=== PATIENT | female | born 1930 | race Caucasian/White ===

== ENCOUNTER 2017-12-19 15:17 | Inpatient (IN) | payer OTHER ==
[~2017-12-19] VITALS: Ht 154.9 cm; Wt 62.1 kg
[~2017-12-19 15:17] MED LIST: APAP650 PO; ASPERCREME1 EACH; ASPIRIN81 M2 PO; ATENOLOL 50MG T50 M1 PO; BENTYL 20 MG TA20 M1 PO; CIPRO500 MG PO; COLACE100 MG PO; COZAAR 50 MG TA50 M2 PO; FLAGYL500 MG PO; LEVAQUIN 750 M750 MG PO; LIDODERM 5%1 PATC1 TRANSDERM; LIPITOR 20 MG T20 M1 PO; MAPAP500 M1 PO; MIRALAX17 GM PO; MOBIC7.5 MG PO; NORVASC5 MG PO; PANTOPRAZOLE SO40 M1 PO; PROTONIX40 M1 PO
[2017-12-19 15:18] VITALS: BP 175/76
[2017-12-19] MEDS ORDERED: ACIDOPHILUS-PE1 EAC3 PO (15:32)
[2017-12-19] MEDS ORDERED: ACETAMINOPHEN500 M1 PO (15:33)
[2017-12-19] MEDS ORDERED: AZITHROMYCIN 2250 MG PO (15:33)
[2017-12-19] MEDS ORDERED: XOPENEX HFA15 GM INH (15:38)
[2017-12-19] MEDS ORDERED: TOPROL XL25 MG PO (15:38)
[2017-12-19 15:53] LABS: HEMATOCRIT 38.9 % (37.0-47.0); HEMOGLOBIN 12.7 gm/dL (12.0-15.0); MCH 29.5 pg (26.0-34.0); MCHC 32.8 g/dL (28.0-37.0); MCV 90.1 fL (80.0-100.0); MPV 7.4 fl. (7.2-11.1); NUCLEATED RBCS 0 /100WBC; PLATELET COUNT* 310 thou/uL (150-400); RBC 4.32 mil/uL (4.20-5.00); RDW-CV 14.5 % (10.5-14.5); WBC 16.7 thou/uL (4.0-11.0)
[2017-12-19 16:01] LABS: CALCIUM 9.1 mg/dL (8.5-10.1); CREATININE 1.6 mg/dL (0.6-1.3); POTASSIUM 3.3 mmol/L (3.5-5.1)
[2017-12-19 16:02] LABS: APTT 25.6 Seconds (25.0-31.3); INR 1.1; PROTIME 10.5 Seconds (9.20-11.50)
[2017-12-19 16:12] LABS: ALBUMIN 2.8 g/dL (3.4-5.0); TOTAL BILIRUBIN 0.5 mg/dL (<0.1-1.0); TOTAL PROTEIN 7.9 g/dL (6.4-8.2); TROPONIN-I LEVEL 0.08 ng/mL (<0.06)
[2017-12-19 16:22] LABS: ABSOLUTE LYMPHOCYTES 0.8 thou/uL (0.8-5.3); ABSOLUTE MONOCYTES 2.8 thou/uL (0.0-1.2)
[2017-12-19 16:23] LABS: PLATELET ESTIMATE ADEQUATE
[2017-12-19 17:50] LABS: URINE BILIRUBIN NEGATIVE (Negative); URINE BLOOD 2+ (Negative); URINE COLOR YELLOW; URINE GLUCOSE-RANDOM NEGATIVE (Negative); URINE KETONES TRACE (Negative); URINE NITRITE-REFLEX NEGATIVE (Negative); URINE PROTEIN 2+ (Negative); URINE UROBILINOGEN 0.2 E.U./dl (0.2-1.0)
[2017-12-19 17:52] LABS: URINE LEUKOCYTES-REFLEX 2+ (Negative)
[2017-12-19 17:53] LABS: URINE CLARITY HAZY
[2017-12-19 18:01] LABS: BACTERIA-REFLEX 1-9 Few /HPF (None Seen); CASTS None Seen /LPF (None Seen); MUCUS 4-6 Moderate strn/LPF (None Seen); SQUAMOUS 4-10 Moderate /LPF (0-3); URINE WBC-REFLEX 6-15 Few /HPF (0-5); WBC CLUMPS Few (None Seen)
[2017-12-19 18:02] LABS: AMORPHOUS URATES Moderate /LPF (None Seen)
[2017-12-19 18:08] VITALS: BP 155/65
--- NOTE | 2017-12-19 19:25 | NUR ---
PT ARRIVED TO THE FLOOR AT 1824, PT AND DAUGHTER ORIENTED TO THE I=UNIT AND SERVICES. PT THEBN TAKEN TO CT FOR STAT ORDERS AND RETURNED AT 1854. CARE HANDED OVER TO SEO PROFESSIONAL NURSE AT THAT POINT.
[2017-12-20] VITALS (7 sets, daily range): BP systolic 136–164; BP diastolic 59–69
[2017-12-20 05:03] LABS: HEMATOCRIT 35.2 % (37.0-47.0); HEMOGLOBIN 11.6 gm/dL (12.0-15.0); MCH 29.7 pg (26.0-34.0); MCHC 32.8 g/dL (28.0-37.0); MCV 90.5 fL (80.0-100.0); MPV 7.5 fl. (7.2-11.1); RBC 3.9 mil/uL (4.20-5.00); RDW-CV 14.6 % (10.5-14.5); WBC 14.4 thou/uL (4.0-11.0)
[2017-12-20 05:26] LABS: CREATININE 1.5 mg/dL (0.6-1.3); POTASSIUM 4.2 mmol/L (3.5-5.1)
--- NOTE | 2017-12-20 07:30 | NUR ---
ASSUMED CARE OF PT ASSESSED AND DOCUMENTED. PT ON CARDIAC MONITER TRACING SR 1ST DEGREE BBB HR 99. VSS WNL. PT IS AFEBRILE. SHE IS ALERT TO SELF. PT IS ON ROOM AIR. PT IS A FALL RISK PER FACILITY PROTOCOL. BED IS IN LOW POSITION CALL LIGHT IS IN REACH. PT HAS A ROBERSON CATH WITH CLEAR YELLOW URINE. SHE DOES WEAR HER SCD'S. WM.
--- NOTE | 2017-12-20 07:47 | NUR ---
ASSUMED CARE OF PT AT 1930, NURSING ASSESSMENT COMPLETED AT START OF SHIFT, PT VOICED NO CONCERNS, PT ORIENTED TO SELF AND PLACE ONLY. DAUGHTER IN ROOM AT START OF SHIFT. PT WEARING TELE MONITOR TRACING SINUS RHYTHM/SINUS TACHYCARDIA IN THE LOW 100'S. BED ALARM ON, FALL PRECAUTIONS IN PLACE, PT WEARING SCD'S. AT 0638, MESSAGE SENT TO DR. KRUSE TO NOTIFY OF PT'S POSITIVE BLOOD CULTURES. NEW ORDERS FOR VANCOMYCIN NOTED ON EMAR AT 0700. Q2H TURNS COMPLETED THIS SHIFT, PT SLOWLY PROGRESSING TOWARDS GOALS.
--- NOTE | 2017-12-20 12:01 | NUR ---
CM ASSESSMENT: Spoke with Pt's dtr, via phone. Pt resides at [facility] on the memory care unit. Dtr stated that up until Sunday, Pt was able to ambulate with her RW. Pt had an unwitnessed fall on Sunday. Dtr stated that the Pt "lives from one UTI to the next," and admits that Pt has a hard time bouncing back after each UTI. PT/OT/ST calderon ordered. Hx of CHCS. Facility assists with most ADLs. Dtr unsure if Pt will need skilled v. HH at tn. Following for disposition.
[2017-12-20] MEDS ORDERED: ASPERCREME1 EACH TOP (14:15)
[2017-12-20] MEDS ORDERED: ACETAMINOPHEN500 M1 PO (14:16)
[2017-12-20] MEDS ORDERED: MIRALAX17 GM PO (14:17)
[2017-12-20] MEDS ORDERED: XOPENEX HFA15 GM INH (14:18)
[2017-12-20] MEDS ORDERED: BIOFREEZE118 ML TOP (14:19)
--- NOTE | 2017-12-20 15:35 | EKG ---
[place] [address] ELECTROCARDIOGRAM REPORT Name: ANAM OJEDA Room: [address] ADM IN M.R.#: [id number] Admission: 12/19/17 Attend Phys: Rajeev Salcedo MD Discharge: Date of : [birth year] Report #: [id number] THIS REPORT FOR: //name// [facility] ED Test Date: 2017-12-19 Test Time: 15:24:36 Pat Name: ANAM OJEDA Department: Room: [facility] Gender: F Human Resources Leader: : 1930 Requested By: Bj Mace Order Number: [id number] MD: Troy Kong Measurements Intervals [place] Rate: 115 P: 31 GA: 326 QRS: -3 QRSD: 103 T: 203 QT: 338 QTc: 468 Interpretive Statements Sinus tachycardia Multiple ventricular premature complexes Prolonged GA interval Inferior infarct, old Compared to ECG 03/28/2017 11:34:00 Ventricular premature complex(es) now present Myocardial infarct finding now present Sinus rhythm no longer present Intraventricular conduction delay no longer present Electronically Signed On 12-20-2017 15:35:39 [employer] LAY UP WORKER by Troy Kong [email or web address] <ELECTRONICALLY SIGNED> By: Troy Kong MD, FACC 12/20/17 1535 1524 1524 Troy Kong MD, FAC /EPI
--- NOTE | 2017-12-20 17:35 | NUR ---
PT HAS SLEPT ON AND OFF THIS SHIFT. SHE HAS HAD NAUSEA X1. MEDICATION GIVEN AND WAS EFFECTIVE. PT C/O PAIN X2. 650 MG OF TYLENOL GIVEN AND WAS EFFECTIVE. PT HAS A TEMP AT 10:45 OF 99.5. HAS BEEN AFEBRILE SINCE. NEW IV PLACED 20G R WRIST. PT HAS HAD NO S OR SX OF ADVERSE REACTION TO ABT. HAVE ENCOURAGED FLUIDS AND NUTRITION. PT SPITS OUT. TRIED PT WITH BOOST AND SHE REFUSES THIS WELL, PT CHOKED ON WATER THIS AM. ORDER WAS GIVEN FOR ST TO DO A SWALLOW EVAL. SEE NOTES. PT HAS CLEAR YELLOW URINE IN HER ROBERSON. FLUIDS STARTED THIS SHIFT. DAUGHTER IS AT BEDSIDE. EDUCATION GIVEN ON DEMAND. PT WAS UNABLE TO GET PT UP THIS SHIFT. HOURLY ROUNDING COMPLETE.
[2017-12-21] VITALS (8 sets, daily range): BP systolic 151–177; BP diastolic 57–86
--- NOTE | 2017-12-21 05:12 | NUR ---
ASSUMED CARE AROUND 1930. PT ONLY ORIENTEDX1. TELE MONITOR TRACING SR/1D. VSS. FEVER LAST NIGHT, TREATED WITH PRN APAP. PT INITIALLY REFUSING ANY LIQUIDS/PILLS BUT AGREED TO TRY MILK WITH PILLS. PT TOOK TWO SIPS WITH PILLS AND REFUSED ANY MORE. PT STATED "I JUST WANT TO BE LEFT ALONE". ON ROOM AIR. IVF INFUSING ORDERED. REPOSITIONED DURING NIGHT. ISOLATION PRECAUTIONS IN PLACE D/T POSITIVE MRSA SWAB. CALL LIGHT IN REACH, BEDALARM ON, WILL CONTINUE WITH PLAN OF CARE.
--- NOTE | 2017-12-21 07:25 | NUR ---
CHANGE OF SHIFT REPORT, BEDSIDE REPORT GIVEN ASSUMED PATIENT CARE PATIENT SEEN AT BEDSIDE, ASLEEP IN BED BED ALARM ON
--- NOTE | 2017-12-21 07:56 | CON ---
[address] [address] CONSULTATION Name: ANAM OJEDA Room: [address] IN M.R.#: [id number] Admission: 12/19/17 Attend Phys: Rajeev Salcedo MD Discharge: Date of : [birth year] Report #: [id number] THIS REPORT FOR: //name// CC: Amish Leger DATE OF SERVICE: 12/20/2017 ATTENDING PHYSICIAN: Rajeev Salcedo M.D. REASON FOR EVALUATION: Gram-positive cocci septicemia. HISTORY OF PRESENT ILLNESS: Chart reviewed, patient examined. This is an 87-year-old woman who has some degree of dementia, lives in a care home facility, was admitted with kind of failing over the course of the last couple of weeks. She did experience a fall and has been progressively weak, more encephalopathic. She is unable to give too many details of her history. At the time of her evaluation and subsequent admission had blood cultures now 2/2 with growth of gram-positive cocci. Lactic acid was only 1.4. Chest x-ray showed no acute process. CT abdomen and pelvis suggests chronic constipation. She does have an elevated white count. She has had low-grade temperature elevations up to 99.6. Empirically started on therapy with ceftriaxone, vancomycin, and azithromycin. ALLERGIES: LISTED SULFA, APPARENTLY CAUSES A RASH. MEDICATIONS: Currently include vancomycin, azithromycin, ceftriaxone, metoprolol, aspirin, docusate sodium, pantoprazole, lactobacillus, dicyclomine, promethazine, ondansetron. PAST MEDICAL HISTORY: As described above, history of hypertension, osteoarthritis, high cholesterol, atrial fib/flutter, history of depression, low back pain. SOCIAL HISTORY: Never smoker. No ethanol. FAMILY HISTORY: Noncontributory. REVIEW OF SYSTEMS: Not reliably obtained. PHYSICAL EXAMINATION: GENERAL: She is in moderate distress at this point, can briefly be redirected, appears chronically ill, undernourished. VITAL SIGNS: Temperature 98.6, pulse 84, respirations 18, [place] [address] CONSULTATION Name: ANAM OJEDA Room: [address]#: [id number] Admission: 12/19/17 Attend Phys: Rajeev Salcedo MD Discharge: Date of : [birth year] Report #: [id number] 136/64. SKIN: Warm, dry. HEENT: Tends to favor dorsal flexion. LUNGS: Few scattered coarse breath sounds. HEART: Regular. ABDOMEN: Soft. There is some guarding. There are no evident peritoneal signs. GENITOURINARY: Deferred. RECTAL: Deferred. LABORATORY DATA: Blood cultures positive with Gram-positive cocci in 2/2 collected yesterday. Prealbumin 11.8. Lactic acid, most recently 1.2. Troponin 0.08. TSH 1.083. Urinalysis, 6-15 white cells, 1-9 bacteria. White count of 16.7, H and H 12.7 and 38.9, platelets of 310, borderline lymphocytopenia, has absolutely monocytosis 2800. Electrolytes: Sodium 157, potassium 3.3, chloride 118, bicarbonate is 25, BUN and creatinine 76 and 1.6 with anion gap of 14 and glucose of 161. LFTs unremarkable, albumin of 2.8. Total protein of 7.9, estimated GFR of 30. ASSESSMENT: Gram-positive cocci septicemia. The patient is certainly at risk for infectious complications. We will await results. I suspect it is going to be a skin source, perhaps staph or strep. Urinalysis did show some mild pyuria, although it is not to such degree to likely to have a gram-positive. At this point, certainly at risk for pneumonitis via aspiration. Continue combination therapy at this point and see how she does clinically. I do not know what the amount of reversibility is at this point, but I think there is probably at least some degree. May need a swallow study as well. <ELECTRONICALLY SIGNED> By: Anjel Cross MD 12/21/17 0756 1322 1903Jokristan Cross MD /nt
[2017-12-21 08:21] LABS: HEMATOCRIT 34.5 % (37.0-47.0); HEMOGLOBIN 11.3 gm/dL (12.0-15.0); MCH 29.8 pg (26.0-34.0); MCHC 32.8 g/dL (28.0-37.0); MCV 91.1 fL (80.0-100.0); MPV 7.6 fl. (7.2-11.1); RBC 3.79 mil/uL (4.20-5.00); RDW-CV 14.7 % (10.5-14.5); WBC 14.5 thou/uL (4.0-11.0)
[2017-12-21 08:34] LABS: CALCIUM 8.7 mg/dL (8.5-10.1); CREATININE 1.3 mg/dL (0.6-1.3); MAGNESIUM 2.9 mg/dL (1.8-2.4); POTASSIUM 3.9 mmol/L (3.5-5.1)
[2017-12-21 11:28] LABS: CALCIUM 8.5 mg/dL (8.5-10.1); CREATININE 1.5 mg/dL (0.6-1.3); POTASSIUM 4.4 mmol/L (3.5-5.1)
--- NOTE | 2017-12-21 18:57 | NUR ---
PATIENT REMAINS A AND O X [address] CONFUSED, WITHDRAWN, AND UNCOOPERATIVE SR/1ST DEGREE LUNGS CTA/DIM IN BASES O2 SAT LOW 90S ON RA POOR APPETITE REF ORAL INTAKE MOST OF THE DAY LAST BM REPORTED T-2 ROBERSON TO DD YELLOW WITH SEDIMENT URINE BR TURN Q 2HR IV R WR 20 GA IVF D5W AT 100CC CALL LIGHT IN REACH AND INSTRUCTION GIVEN BUT NOT ALWYS FOLLOWED NEW ORDERS FOR ACCUCHECKS-192 AT DINNER TIME SPEECH EVAL COMPLETED TODAY CRITICAL NA 161 DR NOTIFIED AND IVF CHANGED AND RECHECK AT 1800 158 IN CONTACT ISOLATION FOR MRSA NARES
[2017-12-22 03:52] VITALS: BP 143/64
--- NOTE | 2017-12-22 05:18 | NUR ---
ASSUMED CARE AROUND 1930. PT A/OX2, MORE ALERT AND PLEASANT TONIGHT THAN LAST. PT COOPERATIVE AND TOOK PILLS WITH SIPS OF NECTAR THICK LIQ LAST NIGHT. PT APPEARED TO REST WELL. TELE MONITOR TRACING SR/1D. VSS, AFEBRILE. ON ROOM AIR. IVF INFUSING ORDERED. ROBERSON TO D/D. REPOSITIONED DURING NIGHT. PAIN TREATED WITH PRN APAP. ISOLATION PRECAUTIONS IN PLACE. CALL LIGHT IN REACH, BEDALARM ON, WILL CONTINUE WITH PLAN OF CARE.
[2017-12-22 05:25] LABS: HEMATOCRIT 32.5 % (37.0-47.0); HEMOGLOBIN 10.7 gm/dL (12.0-15.0); MCH 29.9 pg (26.0-34.0); MCV 90.8 fL (80.0-100.0); MPV 7.9 fl. (7.2-11.1); RBC 3.58 mil/uL (4.20-5.00); RDW-CV 14.8 % (10.5-14.5); WBC 15.2 thou/uL (4.0-11.0)
[2017-12-22 05:37] LABS: ALBUMIN 2.3 g/dL (3.4-5.0); CALCIUM 8.1 mg/dL (8.5-10.1); CREATININE 1.3 mg/dL (0.6-1.3); MAGNESIUM 2.6 mg/dL (1.8-2.4); POTASSIUM 3.8 mmol/L (3.5-5.1); TOTAL BILIRUBIN 0.3 mg/dL (<0.1-1.0); TOTAL PROTEIN 5.9 g/dL (6.4-8.2)
--- NOTE | 2017-12-22 07:20 | NUR ---
CHANGE OF SHIFT, BEDSIDE REPORT GIVEN PATIENT SEEN AT BEDSIDE, ASLEEP BED ALARM ON ASSUMED PATIENT CARE
[2017-12-22 08:00] VITALS: BP 157/57
[2017-12-22 12:04] VITALS: BP 166/66
--- NOTE | 2017-12-22 16:00 | NUR ---
ORDER RECEIVED FOR PICC LINE PLACEMENT BY DR. MORSE, DISCUSSED WITH DR AND FELT SINGLE LUMEN PICC WAS APPROPRIATE FOR PT. CARE AND POSSIBLE DC WITH ANTIBIOTICS AT THIS TIME. PT. IS CONFUSED, DISCUSSED WITH DAUGHTER (MACIEJ) AT BEDSIDE. EXPLAINED BENEFITS AND RISK; INCLUDING ARTERIAL CANNULATION, BLOOD CLOT, AND INFECTION. ALL QUESTIONS ANSWERED AND CONSENT OBTAINED. RIGHT UPPER ARM BASILIC PATENT WITH ULTRA SOUND. PT. PREPPED AND DRAPED FOR MAXIMUM BARRIER. 1% LIDOCAINE GIVEN SUBQ. RIGHT UPPER ARM BASILIC CANNULATED WITH ULTRSOUND GUIDANCE. VESSEL EASLY CANNULATED, HOWEVER LINE WOULD NOT ADVANCE INTO VESSEL, FELT LIKE IT WAS COILING JUST ABOVE INSERTION SITE. NEW NEEDLE OBTAIINED AND BASILIC CANNULATED APPROX. 6 CM PROXIMAL. MODERATE DIFFICULTY NOTED IN GETTING LINE TO FALL INTO PLACE, KEPT WANTING TO GO UP JUGULAR VESSEL. ONCE LINE DROPPED, APPEARED TO BE IN GOOD POSITION WITH ECG, BUT ULTRASOUND MACHINE WOULD NOT CAPTURE PICTURE. STATLOCK, BIOPATCH AND STERILE DRESSING PLACED. STAT CHEST XRAY ORDERED FOR CONFIRMATION OF PLACEMENT. ALL SHARPS DISPOSED OF IN SHARPS CONTAINER.
--- NOTE | 2017-12-22 17:15 | NUR ---
XRAY NOTED TO FOR TIP TO BE IN [facility] AND NEEDING TO BE PULLED OUT 4CM. USING STERILE TECHNIQUE PT. LINE PULLED TO 6 CM AND STERILE DRESSING REPLACED. LINE RELEASED TO RN FOR USE.
[2017-12-22 17:51] VITALS: BP 182/66
[2017-12-22 18:31] LABS: CALCIUM 8.1 mg/dL (8.5-10.1); CREATININE 1.3 mg/dL (0.6-1.3); POTASSIUM 3.2 mmol/L (3.5-5.1)
--- NOTE | 2017-12-22 18:49 | NUR ---
PATIENT REMAINS A AND O X 1-2, CONFUSEED IRRITABLE AND UNCOOPERATIVE AT TIMES SR/1ST DEGREE AT TIMES LUNGS CTA/DIM/RA O2 SAT MID 90S POOR APPETITE ENC/ASSIST FEED DIET AMMENDED TO NECTAR THICK LIQ LAST BM UNKNOWN ROBERSON TO DD YELLOW URINE WITH SEDIMENT BR TURN Q 2HR REF SCDS NO C/O PAIN DID C/O NAUSEA AT TIMES, NO EMESIS A REF TREATMENT FOR NAUSEA ACCEPTED LAXATIVE IV 22 L HAND PICC LINE SINGLE LUMEN IN R UPPER ARM IVF D5 AT 100CC/HR ACCUCHECKS 185/217/136 CALL LIGHT IN REACH AND INSTRUCTION GIVEN BUT HASNT USED BED ALARM ON NEW ORDERS TODAY FOR BOLUS OF D5 500CC, PICC LINE PLACEMENT, NA RECHECK LAB AT 1600, NEPHRO CONS, BISACODYL 10MG FOR CONSTIPATION
[2017-12-22 19:47] VITALS: BP 174/81
[2017-12-23] VITALS (7 sets, daily range): BP systolic 114–182; BP diastolic 59–71
--- NOTE | 2017-12-23 06:57 | NUR ---
ASSUMED CARE AROUND 1930. PT CONFUSED, ORIENTEDX1, DID NOT APPEAR TO REST MUCH TONIGHT. TELE MONITOR TRACING SR/1D. ON ROOM AIR. IVF AND IV K+ INFUSING AT THIS TIME. LABS TO BE DRAWN AFTER K+ BAG INFUSED. ROBERSON TO D/D. NO BM THIS SHIFT, SOAP SUDS ENEMA GIVEN THIS AM. PT TOLERATED WELL. REPOSITIONED DURING THE NIGHT. BP ELEVATED DURING NIGHT, DR SLOAN MADE AWARE AND PRN HYDRALAZINE GIVEN. ISOLATION PRECAUTIONS IN PLACE. CALL LIGHT IN REACH, BEDALARM ON, WILL CONTINUE WITH PLAN OF CARE.
--- NOTE | 2017-12-23 07:25 | NUR ---
CHANGE OF SHIFT, BEDSIDE REPORT GIVEN PATIENT SEEN AT BEDSIDE, ASLEEP BED ALARM ON ASSUMED PATIENT CARE
[2017-12-23 08:54] LABS: HEMATOCRIT 30.4 % (37.0-47.0); HEMOGLOBIN 10.1 gm/dL (12.0-15.0); MCH 29.7 pg (26.0-34.0); MCHC 33.2 g/dL (28.0-37.0); MCV 89.4 fL (80.0-100.0); MPV 8.1 fl. (7.2-11.1); RBC 3.4 mil/uL (4.20-5.00); RDW-CV 13.9 % (10.5-14.5); WBC 13.9 thou/uL (4.0-11.0)
[2017-12-23 08:57] LABS: CALCIUM 7.9 mg/dL (8.5-10.1); CREATININE 1.3 mg/dL (0.6-1.3); MAGNESIUM 2.2 mg/dL (1.8-2.4)
--- NOTE | 2017-12-23 19:21 | NUR ---
PATIENT A AND IO X 1-2, CONFUSED SR/ST LUNGS CTA/DIM/RA O2 SATS MID 90S POOR APPETITE, LITTLE BETTER TODAY AMENDED DIET NECTAR THICK LIQ SMALL BM TODAY ROBERSON TO DD YELLOW UO BR TURN Q 2HR REF SCDS NO C/O PAIN ACCUCHECKS 162/135/116 IV SINGLE LUMEN PICC R UPPER ARM IVF D5 AT 100CC/HR ABN LABS TODAY NA 151 CALL LIGHT IN REACH AND INSTRUCTION GIVEN BUT NOT FOLLOWED BED ALARM ON ISOLATION CONTACT MRSA NARES CONS NEPHRO, ID
[2017-12-24 04:00] VITALS: BP 149/56
[2017-12-24 05:46] LABS: CALCIUM 7.9 mg/dL (8.5-10.1); CREATININE 1.2 mg/dL (0.6-1.3); POTASSIUM 3.5 mmol/L (3.5-5.1)
--- NOTE | 2017-12-24 07:41 | NUR ---
PT IS ABLE TO COMMUNICATE HER NEEDS TO STAFF EFFECTIVELY. SHE HAS DENIED THE NEED FOR PAIN MEDICATION UP TO THIS TIME. DA IS PATENT. CONTACT ISOLATION FOR MRSA MAINTAINED.
[2017-12-24 08:00] VITALS: BP 155/64
--- NOTE | 2017-12-24 10:16 | NUR ---
ASSUMED CARE OF PT THIS AM AROUND 0715- PREPARATION PLANT REPAIRER IN PLACE ORDERED, TRACING SR WITH 1ST DEGREE- UPON ASSESSMENT PT NOTED TO BE RESTING IN BED, EYES CLOSED- PT A&O X1-2 WITH NOTED CONFUSION-INCONTINENT OF BOWEL, ROBERSON IN PLACE D/D CLEAR GENESIS URINE- BED REST IN PLACE WITH Q 2HOUR TURNS-LCTA, RESP EVEN AND UN-LABORED- VSS, O2 SAT 93% ON RA- ABDOMEN SOFT/ROUND/NON-TENDER, BS X4 QUADS- LAST BM REPORTED 12/23/17- RIGHT UE PICC NOTED, DRESSING C/D/I, IVF INFUSING PRESCIBED- IV ABT GIVEN THIS AM PRESCRIBED, NO ADVERSE REACTIONS TO NOTE- PT NOTED TO BE GROOGY THIS AM, REFUSED BREAKFAST- DENIES PAIN/DISCOMFORT AT THIS TIME- CALL LIGHT AND PERSONAL BELONGINGS WITH IN REACH- BED ALARM IN PLACE AND WORKING FOR PT SAFETY- HOURLY ROUNDS IN PLACE R/T SAFETY/NEEDS- ALL NEEDS MET AT THIS TIME-WCTM
[2017-12-24 11:59] VITALS: BP 145/60
--- NOTE | 2017-12-24 14:34 | NUR ---
Spoke with Pt's dtr and son at bedside. Discussed disposition. CM discussed skilled and explained that Pt may not qualify d/t lack of participation. Dtr and son voiced understanding. Discussed hospice, dtr plans to go and discuss with the ED at [facility]. Pt has been refusing to eat also. The plan at this time would be for Pt to dc back to [facility] with hospice. Cont IVABX for 1-2 more days. Following.
[2017-12-24 16:00] VITALS: BP 153/59
--- NOTE | 2017-12-24 17:17 | NUR ---
PT CURRENTLY RESTING IN BED SIDE CHAIR- PT CONTINUES TO BE GROGGY, AND WITHDRAWN FROM CARES THIS SHIFT- REFUSES TO EAT THIS SHIFT, EVEN WITH FAMILY AT SIDE ATTEMPTING- SENIOR SALES MANAGER D/C'D THIS SHIFT- NEPHROLOGY SIGNED OFF PT CARE THIS SHIFT- CODIE Carvajal THIS SHIFT AT 1135, WITH EFFECTIVENESS NOTED- BS MONITORED WITH NO NEED FOR SSI THIS SHIFT- RIGHT UE PICC INTACT, DRESSING C/D/I, IVF D/C'D THIS SHIFT- DENIES PAIN/DISCOMFORT AT THIS TIME- CALL LIGHT AND PERSONAL BELONGINGS WITH IN REACH- HOURLY ROUNDS IN PLACE- ALL NEEDS MET AT THIS TIME-WCTM
[2017-12-24 20:00] VITALS: BP 158/73
--- NOTE | 2017-12-25 02:24 | NUR ---
ASSUMED PT CARE AT 1930, PT IS AWAKE AND ALERT TO SELF ONLY. PT IS MED SURG STATUS. ON RA SATTING MID TO HIGH 90'S. PT IS DRINKING NECTAR THICKENED LIQUIDS, PT TOOK PILLS WITHOUT AN ISSUE. PT IS A DNR, BRACELET IN PLACE. PT C/O BACK PAIN, THIS SHIFT, PRN PAIN MEDICATIONS GIVEN PER DEC. PT HAS A ROBERSON TO DD, DRAINING YELLOW URINE. BED IN LOW POSITION, CALL LIGHT IN REACH, BED ALARM ON, YELLOW ARM BAND AND SOCKS IN PLACE. HOURLY ROUNDING COMPLETED FOR PT SAFETY.
[2017-12-25 05:00] VITALS: BP 173/71
[2017-12-25 07:51] VITALS: BP 154/76
--- NOTE | 2017-12-25 09:23 | NUR ---
ASSUMED CARE OF PT THIS AM AROUND 0715- UPON ASSESSMENT PT NOTED TO BE RESTING IN BED- PT A&O X2 WITH NOTED CONFUSION- INCONTINENT OF BOWEL, ROBERSON IN PLACE D/D CLEAR YELLOW URINE- MAX ASSIST X2 WITH TRANSFERS- LCTA, DIMINISHED IN BASES- RESP EVEN AND UN-LABORED- VSS, O2 SAT 93% ON RA- ABDOMEN SOFT/ROUND/NON-TENDER, BS X4 QUADS-ASSIST WITH MEALS NOTED WITH ENCOURAGEMENT, POOR PO INTAKE NOTED, PT NOT WANTING TO EAT- RUE PICC NOTED INTACT, DRESSING C/D/I-LOW GRAE TEMP NOTED THIS AM- PT REPORTS TO NOT FEEL WELL- , ID UPDATED- PRN TYLENOL GIVEN AT 0837- IV ABT MEROPENEM D/C'D WITH ZOSYN IV Q 8 STARTED- ISOLATION IN PLACE AND MAINTAINED INDICATED R/T MRSA AND ESBL- BS MONIOTORED PRESCIBED- CALL LIGHT AND PERSONAL BELONGINGS WITH IN REACH- HOURLY ROUNDS IN PLACE R/T SAFETY/NEEDS- ALL NEEDS MET AT THIS TIME-WCTM
--- NOTE | 2017-12-25 11:27 | NUR ---
Spoke with Pt's dtr, family chose to use [facility]. [facility]. Plan is for Pt to return to [facility] [place]
[2017-12-25 16:18] VITALS: BP 133/92
--- NOTE | 2017-12-25 16:53 | NUR ---
PT CURRENTLY RESTING IN BED, DAUGHTER AND SON AT SIDE VISITING- COPY ROOM TECHNICIAN IN PLACE AND CONTINUED PRESCIBED, V-PACED- PICC LINE INTACT TO COREY HERNANDEZ- IV ABT PRESCIBED- CONTIUED POOR PO INTAKE NOTED WITH ASSISTANCE AND ENCOURAGEMENT- DA CONTINUED AND IN PLACE D/D CLEAR GENESIS URINE- KACEYUGHER HERE AND SPOKE WITH ID VIA PHONE FO UPDATE R/T TO CONCERNS AND QUESTIONS- CM HERE TO HELP ARRANGE FOR D/C- Q [address] INDICATED- SCD'S IN PLACE INDICATED- CALL LIGHT AND PERSONAL BELONGINGS WITH IN REACH- PT CHECKED ON FREQUENTLY R/T SAFETY/NEEDS- ALL NEEDS MET AT THIS TIME-WCTM
--- NOTE | 2017-12-25 16:57 | NUR ---
PT. TO DISCHARGE TO [facility] WITH HOSPICE. TALKED WITH PT. TO SEE IF SHE WANTED TO CONTINUE O.T. UNTIL DISCHARGE BUT SHE REQUESTED TO STOP O.T. SERVICES. THUS O.T. SERVICES WILL BE DISCONTINUED AT THIS TIME.
[2017-12-25 17:52] LABS: URINE BILIRUBIN NEGATIVE (Negative); URINE BLOOD 1+ (Negative); URINE CLARITY CLEAR; URINE COLOR STRAW; URINE GLUCOSE-RANDOM NEGATIVE (Negative); URINE KETONES NEGATIVE (Negative); URINE LEUKOCYTES-REFLEX 1+ (Negative); URINE NITRITE-REFLEX NEGATIVE (Negative); URINE PROTEIN TRACE (Negative); URINE SPECIFIC GRAVITY 1.025 (1.005-1.030); URINE UROBILINOGEN 0.2 E.U./dl (0.2-1.0)
[2017-12-25 18:03] LABS: CASTS None Seen /LPF (None Seen); MUCUS 0-3 Light strn/LPF (None Seen); SQUAMOUS 0-3 Few /LPF (0-3); URINE RBC 3-10 Few /HPF (0-2); WBC CLUMPS Few (None Seen)
[2017-12-25 18:04] LABS: AMORPHOUS URATES Moderate /LPF (None Seen)
[2017-12-25 20:00] VITALS: BP 173/71
[2017-12-26] VITALS: BP 165/61
--- NOTE | 2017-12-26 02:47 | NUR ---
ASSUMED PT CRAE AT 1930, PT IS AWAKE AND ALERT TO SELF. PT IS MED SURG, ON RA SATTING MID TO HIGH 90'S. NECTAR THICKENED LIQUIDS, TOOK PILLS WITHOUT ANY ISSUES. PT HAD A LOW GRADE TEMP THROUGHTOUT THE SHIFT. ROBERSON TO DD, DRAINIGN YELLOW URINE. PT DENIES ANY PAIN OR NEEDS AT THIS TIME. BED IN LOW POSITION, CALL LIGHT IN REACH, BED ALARM ON, YELLOW ARM BAND AND SOCKS IN [place]. HOURLY ROUNDING COMPLETED FOR PT SAFETY. PT SLEPT ON AND OFF THROUGHOUT THE SHIFT.
[2017-12-26 04:00] VITALS: BP 160/49
[2017-12-26 05:27] LABS: HEMATOCRIT 29.6 % (37.0-47.0); HEMOGLOBIN 9.9 gm/dL (12.0-15.0); MCH 29.8 pg (26.0-34.0); MCHC 33.4 g/dL (28.0-37.0); MCV 89.4 fL (80.0-100.0); MPV 8.3 fl. (7.2-11.1); RBC 3.32 mil/uL (4.20-5.00); RDW-CV 13.9 % (10.5-14.5); WBC 11.3 thou/uL (4.0-11.0)
[2017-12-26 05:33] LABS: CALCIUM 8.3 mg/dL (8.5-10.1); CREATININE 1.2 mg/dL (0.6-1.3); MAGNESIUM 2.4 mg/dL (1.8-2.4); POTASSIUM 3.2 mmol/L (3.5-5.1)
[2017-12-26 08:00] VITALS: BP 174/77
--- NOTE | 2017-12-26 10:41 | CON ---
[address] [address] CONSULTATION Name: ANAM OJEDA Room: [address] IN .R.#: [id number] Admission: 12/19/17 Attend Phys: Rajeev Salcedo MD Discharge: Date of : [birth year] Report #: [id number] THIS REPORT FOR: //name// CC: Amish Leger DATE OF SERVICE: 12/23/2017 REQUESTING PHYSICIAN: Chris Granados MD REASON FOR CONSULTATION: Acute kidney injury and hypernatremia. HISTORY OF PRESENT ILLNESS: The patient is an 87-year-old white female who was admitted to the hospital on 12/19/2017 with complaints of progressive weakness. The patient is a [facility] and staff at [facility] noted that she became less responsive, but confused, so they brought her to the hospital. She was diagnosed with acute kidney injury and urosepsis. Her creatinine on admission was 1.6. Her serum sodium was 157. Her urine culture and blood culture both grew ESBL E. coli, so she was started on IV fluids and meropenem. PAST MEDICAL HISTORY: Significant for, 1. Chronic kidney disease stage 3. 2. History of coronary artery disease, status post bypass graft surgery in 2008. 3. History of stroke. 4. History of chronic degenerative joint disease. FAMILY HISTORY: Noncontributory to this 87-year-old lady. SOCIAL HISTORY: She is a [facility] resident. MEDICATIONS: Reviewed. REVIEW OF SYSTEMS: Unreliable due to her confusion. PHYSICAL EXAMINATION: GENERAL: She is confused, but awake. VITAL SIGNS: Her blood pressure 163/71, heart rate 74. She is afebrile. HEENT: Pupils are round. NECK: Supple. LUNGS: Decreased air movements. CARDIOVASCULAR: Reveals regular rate. Heart tones are distant. ABDOMEN: [place] [address] CONSULTATION Name: ANAM OJEDA Room: [address]#: [id number] Admission: 12/19/17 Attend Phys: Rajeev Salcedo MD Discharge: Date of : [birth year] Report #: [id number] LOWER EXTREMITIES: Trace edema. LABORATORY DATA: Report revealed serum sodium 151, down from 160 yesterday. BUN 28, creatinine 1.3, potassium 4.0, calcium 7.9. White count is 13.9. ASSESSMENT: 1. Acute kidney injury due to combination of volume depletion and extended-spectrum beta-lactamases Escherichia coli bacteremia. 2. Extended-spectrum beta-lactamase urosepsis. 3. Hypernatremia due to free water deficit. PLAN: 1. Continue with antibiotics. 2. Continue with D5W. 3. Check labs and I's and O's. 4. Discussed this case with the patient, family and with nurse and also with Dr. Gonzalez, Infectious Disease doctor. Thank you very much for asking my opinion on acute kidney injury and hypernatremia on this patient. <ELECTRONICALLY SIGNED> By: Juan F Martinez MD 12/26/17 1041 1353 [id number] Martinez MD /nt
--- NOTE | 2017-12-26 12:00 | NUR ---
ORDERS RECEIVED FOR DC TO [facility] WITH H[facility]PICE. FAMILY HAS CHOSEN [facility] CALLED AND SPOKE WITH LOGAN CARVALHO WITH [facility]. THEY ARE READY TO ADMIT TODAY. SPOKE WITH [facility], THEY WILL ACCEPT BACK AND AWARE PT WILL COME ON HOSPICE. CALLED DTR/JOSE. IN AGREEMENT WITH PLAN. DISCUSSED TRANSPORT. SET UP [facility] FOR 3PM TODAY [facility]RU [facility]. ORDERS FAXED TO THE [facility] AND [facility]. NOTIFIED [facility] THAT PT WOULD BE DC'D AROUND 3PM, THEY WILL ADMIT THEN. RN HAS NUMBER TO CALL REPORT. CHART COPIED
[2017-12-26 12:03] VITALS: BP 174/77
--- NOTE | 2017-12-26 15:20 | NUR ---
PT TRANSFERED TO [facility]. REPORT CALLED TO EUGENE AT 1521. PT TRANSPORTED VIA [facility]ED BY TRANSPORTERS AND FAMILY FOLLOWING. PT FAMILY TOOK ALL PERSONAL BELONGINGS AND DISCHARGE PACKET AT TIME OF DISCHARGE.
== END 2017-12-26 15:30 | disposition hospice, inpatient (51) | DRG 871 ==
LOC: M.ERS 15:17 → M.TBA-ER 17:38 → M.2W 17:38
PROVIDERS: Emergency Medicine Emergency Medical Services; Family Medicine; Internal Medicine; Internal Medicine Nephrology; Specialist; ADMIT Internal Medicine
PROC: 02H633Z Insertion of Infusion Device into Right Atrium, Percutaneous Approach (ICD-10-PCS; principal; 2017-12-22)
PROC: B244ZZZ Ultrasonography of Right Heart (ICD-10-PCS; principal; 2017-12-22)
DX: A41.51 Sepsis due to Escherichia coli [E. coli] (principal); G92 Toxic encephalopathy; J96.01 Acute respiratory failure with hypoxia; J69.0 Pneumonitis due to inhalation of food and vomit; I48.92 Unspecified atrial flutter; N17.9 Acute kidney failure, unspecified; E87.0 Hyperosmolality and hypernatremia; N39.0 Urinary tract infection, site not specified; E44.0 Moderate protein-calorie malnutrition; K56.41 Fecal impaction; Z66 Do not resuscitate; F03.90 Unspecified dementia, unspecified severity, without behavioral disturbance, psychotic disturbance, mood disturbance, and anxiety; M19.90 Unspecified osteoarthritis, unspecified site; F32.9 Major depressive disorder, single episode, unspecified; I48.91 Unspecified atrial fibrillation; E78.00 Pure hypercholesterolemia, unspecified; N18.3 Chronic kidney disease, stage 3 (moderate); E86.0 Dehydration; I12.9 Hypertensive chronic kidney disease with stage 1 through stage 4 chronic kidney disease, or unspecified chronic kidney disease; Z79.82 Long term (current) use of aspirin; Z79.899 Other long term (current) drug therapy; Z88.2 Allergy status to sulfonamides; Z86.73 Personal history of transient ischemic attack (TIA), and cerebral infarction without residual deficits; Z82.49 Family history of ischemic heart disease and other diseases of the circulatory system; Z68.25 Body mass index [BMI] 25.0-25.9, adult; Z91.81 History of falling